=== PATIENT | female | born 1975 | race Caucasian/White ===

== ENCOUNTER → 2016-11-14 | Outpatient (CLI) | payer MEDICAID ==
--- NOTE | 2016-11-14 18:18 | DX ---
Cervical Spine, Five Views History: Left-sided neck pain for 1-1/2 weeks, with no trauma, mild left upper extremity radiculopat hy. Comparison: None available. Findings: There is trace anterolisthesis of C4 on C5, with mild reversal of the normal cervical lord osis. No fracture is identified. Minimal uncovertebral spondylosis and facet hypertrophy is present , with no significant neural foraminal stenosis. There is no prevertebral soft tissue swelling. Impression: Mild degenerative change and trace anterolisthesis of C4 on C5, with no definite etiolog y for the patient's pain. If symptoms persist and clinical suspicion warrants, consider MRI.
== END ==
LOC: BRMIMAGING 12:44
PROVIDERS: ATTEND Registered Nurse
DX: M54.2 Cervicalgia (principal)
CPT/HCPCS: 72050-PO

== ENCOUNTER → 2017-07-06 | Outpatient (CLI) | payer MEDICAID | LOC: BRMIMAGING 13:32 | PROVIDERS: ATTEND Physician Assistant | DX: M25.511 Pain in right shoulder (principal) | CPT/HCPCS: 73030-PO ==